=== PATIENT | female | born 1955 | race Caucasian/White ===

== ENCOUNTER 2023-08-10 21:10 | Emergency (ER) | payer MEDICARE, SELFPAY ==
[2023-08-10 21:13] VITALS: BP 184/76
--- NOTE | 2023-08-10 21:20 | ED.GENMED ---
History of Present Illness
General
Chief Complaint: Head Injury
Time Seen by Provider: 08/10/23 21:19
Travel History
Have you had any contact with someone who has COVID-19?: No
Do you have any symptoms of coronavirus? Fever > 100 degrees, chills, cough, shortness of breath, sore throat, loss of taste or smell, muscle aches, or headache?: No
History of Present Illness
History of Present Illness:
HPI: Patient fell, striking the back of the head. She was cleaning wet for in her bathroom was trying to stand up and then fell backwards striking the tub. She noted a laceration to the back of the scalp. Patient has minimal headache with no neck
pain. She denies any other injury or concern.
EXAM:
GENERAL: Well appearing in no distress
CERVICAL SPINE: No midline c-spine tenderness with excellent AROM
HEAD: The patient has a slightly irregular 2.5 cm laceration to the occiput
CHEST: No chest wall tenderness, normal heart sounds
LUNGS: Equal lung sounds, no respiratory distress
ABDOMEN: No abdominal tenderness, no peritoneal signs
EXTREMITIES: Normal active range of motion, no tenderness
NEURO: Excellent strength all extremities, appropriate mental status, normal speech/language
TIME OF INITIAL ENCOUNTER: 9:20 PM
NUMBER AND COMPLEXITY OF PROBLEMS ADDRESSED AT THE ENCOUNTER
� Chronic conditions affecting care: High blood pressure, hyperlipidemia, diabetes
� Acute Exacerbation and/or Progression of Chronic Illness:
� Differential Diagnosis includes: Intracranial hemorrhage, minor head injury, scalp laceration
AMOUNT AND/OR COMPLEXITY OF DATA TO BE REVIEWED AND ANALYZED
� I performed an independent evaluation of and my interpretation is:
EKG:
CT:
X-rays:
Laboratory Studies:
Other:
� Review of other/old records: No old records available for review
� Clinical information was obtained by an independent historian: Spoke to family at bedside
� Prescriptions/Medications Considered but not given:
� Further testing considered but not performed:
RISK OF COMPLICATIONS AND/OR MORBIDITY OR MORTALITY OF PATIENT MANAGEMENT
� Social determinants of health affecting care: Lives at home
� Discussion with other providers:
� Escalation of care including admission/observation vs risk of discharge considered: Given patient's age, will obtain CT imaging however the patient is not on any anticoagulation or any anti-platelets.
Phy Exam
Physical Exam
Physical Exam:
See HPI
Course
Orders/Labs/Results
Orders:
Orders
08/10/23 21:25
CT Head W/o Iv Contrast Urgent
Comment:
Reason For Exam: trauma, head injury
Tetanus/Diphth/Acelpertussis [Adacel] 0.5 ml IM .ONCE ONE
Vital Signs
Initial and Last Documented VS:
Initial Vital Signs
Temp Pulse Resp BP Pulse Ox
98.2 F 72 24 184/76 100
08/10/23 21:13 08/10/23 21:13 08/10/23 21:13 08/10/23 21:13 08/10/23 21:13
Last Documented Vital Signs
Temp Pulse Resp BP Pulse Ox
98.2 F 72 24 184/76 100
08/10/23 21:13 08/10/23 21:13 08/10/23 21:13 08/10/23 21:13 08/10/23 21:13
Procedures
Laceration Closure
Posterior Scalp:
Status of Wound: clean
Description of Wound Edges: ragged
Preparation: cleaned with saline
Skin Closure Material: skin meenu (3 meenu)
Additional information:
Tolerated well
*Critical Care Note
Total Time (30-74mins, 75-104mins- exclusive of procedures): Not Applicable
ED Attending Note
-
Portions of this chart may have been created with voice recognition software.� Occasional wrong word or��sound alike� substitutions may have occurred due to the inherent limitations of voice recognition software.
Discharge Plan
Departure
Patient Disposition: Home (Routine Discharge)
Date of Disposition: 08/10/23
Time of Disposition: 22:23
Patient with high blood pressure during this ER visit?: Yes
Discharge Problem:
Head injury
Instructions: Laceration Repair With [place] (DC), BLOOD PRESSURE
Activity Restrictions/Additional Instructions:
Have meenu removed by urgent care in approximately 7 to 10 days. Return here if worse. Your blood pressure is elevated at 184/76 and I recommend you follow-up with primary care doctor for reassessment. CAT scan of the brain shows no bleeding.
Interventions
Interventions:
*Risk Screen - Suicide Last Done: 08/10/23 21:13
*General Assessment Last Done: 08/10/23 21:51
*Neglect/Abuse Screening Last Done: 08/10/23 21:13
ED- Fall Risk Assessment Last Done: 08/10/23 21:51
*ED COVID-19 Vaccine History Last Done: 08/10/23 21:51
ED- Neurological Assessment Last Done: 08/10/23 21:50
ED-Skin Assessment Last Done: 08/10/23 21:50
Discharge Date and Time
Print Language: BRAZILIAN
[2023-08-10 21:51] VITALS: BMI 23.7
[2023-08-10] MEDS: ADACEL 0.5 ML IM (22:01)
[2023-08-10 22:09] VITALS: BP 166/65
== END 2023-08-10 22:45 | disposition home or self-care (01) ==
LOC: EMR 21:10
PROVIDERS: EMERGENCY PHYSICIAN Emergency Medicine
DX: S09.90XA Unspecified injury of head, initial encounter (principal); S01.01XA Laceration without foreign body of scalp, initial encounter; R51.9 Headache, unspecified; W01.198A Fall on same level from slipping, tripping and stumbling with subsequent striking against other object, initial encounter; Y93.E5 Activity, floor mopping and cleaning; Y92.002 Bathroom of unspecified non-institutional (private) residence as the place of occurrence of the external cause; R03.0 Elevated blood-pressure reading, without diagnosis of hypertension; Z23 Encounter for immunization
CPT/HCPCS: 99284; 12001; 90471; 70450; 90715